=== PATIENT | female | born 1995 | race Caucasian/White ===

== ENCOUNTER 2017-08-09 02:35 | Emergency (ER) | payer BC ==
[~2017-08-09] VITALS: Ht 160 cm; Wt 50.0 kg
[2017-08-09 02:44] VITALS: TEMP 97.7
[2017-08-09] MEDS ORDERED: PROBIOTIC (02:48)
[2017-08-09 03:30] LABS: HEMATOCRIT 39.8 % (37.0-47.0); HEMOGLOBIN 13.7 g/dl (12.5-16.0); MEAN CELL VOLUME 89 fl (80.0-100.0); MEAN CORPUSCULAR HEMOGLOBIN 31 pg (27.0-31.0); MEAN CORPUSCULAR HGB CONC 34 g/dl (33.0-37.0); MEAN PLATELET VOLUME 9.2 fl (7.4-10.4); PLATELET COUNT 244 K/mm3 (130-400); RED BLOOD COUNT 4.47 M/mm3 (4.10-5.30); REDCELL DISTRIBUTION WIDTH-CV 12.1 % (11.5-14.5)
[2017-08-09 03:40] LABS: ALBUMIN 5.4 gm/dL (3.5-5.0); BAND 21 % (0-10); BILIRUBIN,TOTAL 1.1 mg/dL (0.0-1.0); CREATININE, serum 0.82 mg/dL (0.52-1.25); LYMPHOCYTE 3 % (20.0-51.0); NEUTROPHILS 71 % (42.0-75.2); PLATELET ESTIMATE NORMAL (NORMAL); TOTAL PROTEIN 8.3 gm/dL (6.4-8.2)
[2017-08-09 03:47] LABS: INFLUENZA A NEGATIVE; INFLUENZA B NEGATIVE
[2017-08-09] MEDS ORDERED: ZOFRAN ODT4 MG PO (05:05)
[2017-08-09 05:30] LABS: COLLECTION METHOD CLEAN CATCH
[2017-08-09 05:36] LABS: MUCOUS Present /lpf; PH 5 (5-8); URINE APPEARANCE Clear; URINE BACTERIA None Seen /hpf; URINE BILIRUBIN Negative (NEGATIVE); URINE BLOOD Negative (NEGATIVE); URINE COLOR Yellow; URINE GLUCOSE Negative (NEGATIVE); URINE KETONE 2+ (NEGATIVE); URINE LEUKOCYTE ESTERASE Negative (NEGATIVE); URINE NITRATE Negative (NEGATIVE); URINE PROTEIN(semi-quant) Negative (NEGATIVE); URINE RBC 0-2 /hpf; URINE UROBILINOGEN Negative (NEGATIVE)
[2017-08-09 06:39] VITALS: BP 104/64; PULSE 108
== END 2017-08-09 06:43 | disposition home or self-care (01) ==
LOC: COL.ER 02:35
PROVIDERS: Emergency Medicine; Physician Assistant
DX: R11.10 Vomiting, unspecified (principal); R19.7 Diarrhea, unspecified
CPT/HCPCS: J2405; J7030; J7040

== ENCOUNTER → 2020-10-16 | Outpatient (CLI) | payer BC ==
[~2020-10-16] MED LIST: MASON NATURAL2000 IU PO; NUVARING VAG RING VG; PRENATAL TABLET PO; PROBIOTIC; PROBIOTIC FORMU1 CAP PO; SYNTHROID0.125 MG/T PO; VTAMINC250TA PO; ZOFRAN ODT4 MG PO
== END ==
LOC: COL.RAD
DX: E04.1 Nontoxic single thyroid nodule (principal)

== ENCOUNTER → 2020-10-31 | Outpatient (CLI) | payer BC ==
[~2020-10-31] VITALS: Ht 160 cm; Wt 47.0 kg
[2020-10-31 07:09] VITALS: BP 113/74; PULSE 100
[2020-10-31 08:10] VITALS: BP 119/71; PULSE 90
== END ==
LOC: COL.RAD 10-30 09:45
DX: E04.1 Nontoxic single thyroid nodule (principal)

== ENCOUNTER 2020-12-26 13:00 | Outpatient (RCR) | payer BC ==
[2020-12-25 15:05] VITALS: BP 113/67; PULSE 92; TEMP 98.1
[~2020-12-26] VITALS: Ht 160 cm; Wt 46.9 kg
[~2020-12-26 13:00] MED LIST changes: -NUVARING VAG RING VG
[2020-12-26 13:35] VITALS: BP 118/63; PULSE 90; TEMP 98.4
[2020-12-26] MEDS ORDERED: NUVARING VAG RING VG (17:33)
== END 2020-12-27 17:20 | disposition still patient (30) ==
LOC: EUO 13:00
PROVIDERS: Otolaryngology
DX: C73 Malignant neoplasm of thyroid gland (principal)
CPT/HCPCS: J3240

== ENCOUNTER 2020-12-27 13:29 | Outpatient (RCR) | payer BC ==
[~2020-12-27 13:29] MED LIST changes: +NUVARING VAG RING VG
[2021-01-05 16:37] LABS: THYROGLOBULIN AB SCREEN 95 IU/mL (<1.8); THYROGLOBULIN TUMOR MARKER <0.1 ng/mL (())
== END 2021-03-27 | disposition home or self-care (01) ==
LOC: COL.RAD
PROVIDERS: Otolaryngology
DX: C73 Malignant neoplasm of thyroid gland (principal)
CPT/HCPCS: A9517

== ENCOUNTER 2021-12-05 15:00 | Outpatient (RCR) | payer BC ==
[~2021-12-05 15:00] MED LIST changes: +SYNTHROID0.088 MG/T PO; -SYNTHROID0.125 MG/T PO
[2021-12-11] MEDS ORDERED: ELURYNG VAGINA1 EACH VG (14:34)
[2021-12-11] MEDS ORDERED: PROBIOTIC BLEN1 EACH PO (14:34)
== END 2021-12-08 | disposition home or self-care (01) ==
LOC: WSST
DX: R49.0 Dysphonia (principal); J38.01 Paralysis of vocal cords and larynx, unilateral

== ENCOUNTER 2021-12-13 14:00 | Outpatient (RCR) | payer BC ==
[2021-12-11 14:35] VITALS: BP 122/58; PULSE 96; TEMP 98.2
[2021-12-12 14:36] VITALS: BP 105/67; PULSE 78; TEMP 98.2
[~2021-12-13] VITALS: Ht 160 cm; Wt 49.7 kg
[~2021-12-13 14:00] MED LIST changes: +ELURYNG VAGINA1 EACH VG; +PROBIOTIC BLEN1 EACH PO
== END 2022-01-08 | disposition home or self-care (01) ==
LOC: COL.RAD
DX: C73 Malignant neoplasm of thyroid gland (principal)
CPT/HCPCS: A9516; J3240

== ENCOUNTER 2021-12-26 15:00 | Outpatient (RCR) | payer BC | END 2022-01-08 | disposition home or self-care (01) | LOC: WSST | DX: R49.0 Dysphonia (principal); J38.00 Paralysis of vocal cords and larynx, unspecified ==

== ENCOUNTER 2022-01-15 09:50 | Outpatient (RCR) | payer BC | END 2022-02-07 | disposition home or self-care (01) | LOC: WSST | DX: R49.0 Dysphonia (principal); J38.01 Paralysis of vocal cords and larynx, unilateral ==

== ENCOUNTER 2022-02-13 12:23 | Outpatient (RCR) | payer BC | END 2022-03-10 | disposition home or self-care (01) | LOC: WSST | DX: R49.0 Dysphonia (principal); J38.01 Paralysis of vocal cords and larynx, unilateral ==